=== PATIENT | male | born 1940 | race Caucasian/White ===

== ENCOUNTER 2018-09-24 10:18 | Day surgery (SDC) | payer MEDICARE ==
[2018-09-20 13:23] VITALS: BMI 35.9
[~2018-09-24 10:18] MED LIST: DEXAMETHASONE SOD PHOSPHATE 10 MG/ML 1 ML VIAL IV ONE; HYDROmorphone 0.5 MG/0.5 ML SYRINGE IVP PRN; LACTATED RINGERS 1,000 ML IV SCH; ONDANSETRON 4 MG/2 ML VIAL IVP ONE; SODIUM CHLORIDE 0.9% 1,000 ML IV SCH; ceFAZolin 1,000 MG in SODIUM CHLORIDE 0.9% IRRIGATIO 250 ML IRRIGATION ONE; ceFAZolin IN SWFI 2 GM/20 ML SYRINGE IVP ONE
[2018-09-24] MEDS ORDERED: SODIUM CHLORIDE 0.9% 1,000 ML IV ONE (10:40)
[2018-09-24] MEDS ORDERED: SODIUM CHLORIDE 0.9% 500 ML 500 ML IV ONE (10:40)
[2018-09-24 11:14] LABS: Basophils # (A) 0.1 k/uL (0-0.2); Basophils % (A) 1 %; Eosinophils # (A) 0.2 k/uL (0-0.7); Eosinophils % (A) 3 %; HCT 38.8 % (39.0-53.0); HGB 12.6 gm/dL (13.0-17.5); Lymphocytes # (A) 1.6 k/uL (1.0-4.8); Lymphocytes % (A) 22 %; MCH 30.7 pg (25.0-35.0); MCHC 32.4 g/dL (31.0-37.0); MCV 94.8 fL (80.0-100.0); Mean Platelet Volume 6.4; Monocytes # (A) 0.5 k/uL (0-1.0); Monocytes % (A) 7 %; Neutrophils # (A) 4.9 k/uL (1.3-7.7); Neutrophils % (A) 66 %; Platelet Count 167 k/uL (150-450); RBC 4.09 m/uL (4.30-5.90); RDW 13.4 % (11.5-15.5); WBC 7.5 k/uL (3.8-10.6)
[2018-09-24 11:20] LABS: Potassium 4.5 mmol/L (3.5-5.1)
[2018-09-24] MEDS ORDERED: LIDOCAINE 1% INJ 10MG/ML (20 ML MDV) ONE (11:57)
[2018-09-24] MEDS ORDERED: GLYCOPYRROLATE 0.2 MG/ML 2 ML VIAL ONE (12:45)
[2018-09-24] MEDS ORDERED: KETAMINE 10 MG/ML 20 ML VIAL ONE (12:45)
[2018-09-24] MEDS ORDERED: MIDAZOLAM 2 MG/2 ML VIAL ONE (12:45)
[2018-09-24] MEDS ORDERED: HYDROmorphone (PF) 1 MG/ML ONE (12:45)
[2018-09-24] MEDS ORDERED: PROPOFOL 10 MG/ML 20 ML VIAL IV ONE (12:45)
[2018-09-24] MEDS ORDERED: diphenhydrAMINE 50 MG/ML 1 ML VIAL ONE (12:45)
[2018-09-24] MEDS ORDERED: PHENYLEPHRINE-0.9% NACL SYG 1 MG/10 ML SYRINGE ONE (12:45)
[2018-09-24] MEDS ORDERED: HYDROcodone/APAP 5-325MG 1 EACH TAB PO PRN (13:17)
[2018-09-24] MEDS ORDERED: ACETAMINOPHEN TAB 325 MG TAB PO PRN (13:17)
[2018-09-24] MEDS ORDERED: ACETAMINOPHEN IV (For NPO) 1,000 MG in EMPTY BAG 1 BAG IVPB ONE (13:17)
[2018-09-24] MEDS ORDERED: IOPAMIDOL-250 50ML BTL IV ONE (13:20)
[2018-09-24] MEDS ORDERED: LIDOCAINE 1% INJ 10MG/ML (20 ML MDV) SQ ONE ×3 (13:38→13:48)
[2018-09-24] MEDS ORDERED: PRAVASTATIN SODIUM 20 MG TAB PO SCH (14:00)
[2018-09-24] MEDS ORDERED: FUROSEMIDE 40 MG TAB PO STA (15:40)
[2018-09-24] MEDS ORDERED: SPIRONOLACTONE 25 MG TAB PO STA (15:55)
[2018-09-24 16:45] VITALS: RESP 18
--- NOTE | 2018-09-24 18:07 | PCN ---
PROCEDURE NOTE This is an 78-year-old male patient with increasing shortness of breath, history of pulmonary hypertension, tachy-tracie syndrome with underlying atrial fibrillation with intermittent episodes of bradycardia and gradually progressive slowing of the heart rates even during the daytime. TSH normal. No AV vince-blocking drugs on board. Potassium normal. He is brought in for right heart catheterization. The right heart catheterization was performed via the axillary vein access. After making the pacemaker site incision, the venous sheath was placed in the left subclavian vein, and via this a [place]-Maggie catheter was placed in the right heart. Pulmonary capillary wedge pressure 43/5 mmHg. PA pressures 44/4/27 mmHg. RV pressure 55/23 mmHg. RA pressure 19/4/13 mmHg. DIAGNOSES: 1. Moderate pulmonary hypertension. 2. Elevated pulmonary capillary wedge pressures. PLAN: 1. Increase Lasix to 60 mg p.o. daily. 2. Increase Aldactone to 50 mg p.o. daily. 3. Continue all other medications. MMODL / IJN: [id number] /
--- NOTE | 2018-09-24 18:22 | PCN ---
PROCEDURE NOTE PERMANENT PACEMAKER IMPLANTATION: This is a permanent pacemaker implantation procedure for atrial fibrillation with tachybrady syndrome and intermittent episodes of significant bradycardia, even during the daytime. Patient has a conduction system disease with underlying left bundle branch block pattern with a QRS width of about 170 milliseconds. The patient was brought to the EP lab in a fasting state. Written informed consent was obtained prior to the procedure. The left shoulder area was prepped and draped as per protocol. Lidocaine 1% was used for local anesthesia. A 4 cm incision was made parallel to the deltopectoral groove, about 1.5 cm medial to it. The incision was carried down to the level of the pectoralis muscle. A subfascial pocket was made. Hemostasis was assured. Two venous accesses were obtained, one for RV lead and the other for biventricular pacing with physiologic septal pacing. The venous sheaths were placed after right heart catheterization and documentation of elevated pulmonary capillary wedge pressures and moderate pulmonary hypertension. The pacemaker leads were placed. The RV lead was placed in the right ventricle. This was a passive Medtronic lead, model #4074, 58 cm in length, and serial #[id number]. This was positioned in the RV apex. R-waves were 12.9 mV, pacing impedance of 814 ohms, pacing threshold 0.3 V at 0.5 milliseconds. Ten-volt test was negative. The Medtronic model #3830 lead, 69 cm in length and serial #[id number] was positioned for biventricular pacing with physiologic septal pacing. This lead was screwed into the His bundle area. Non-selective capture was noted with pacing. Loss of non- selective capture at 2.8 V at 1 millisecond. Thereafter selective His bundle capture was noted down to 0.4 V at 1 millisecond. Both leads were secured to the underlying pectoralis fascia using 2 non-absorbable sutures. Pocket was irrigated with antibiotic solution. Leads were connected to the generator. Hemostasis was achieved with Aquamantys system. The device was connected. The atrial port was plugged. This was a Medtronic Marimar EXAMINATION PROCTOR-P MRI device, model #W1TR02, serial #[id number]. Leads and the generator were then placed in the subfascial pocket. The wound was closed in 3 layers and dressed per protocol. RESULTS: Successful biventricular pacemaker implantation with physiologic septal pacing for management of tachy-tracie syndrome. SUGGEST: Increase Lasix to 60 mg p.o. daily and increase Aldactone to 50 mg p.o. daily. Continue all other medications as before and maximize antihypertensive therapy. The patient tolerated the procedure well without any acute complications. MMODL / IJN: [id number] /
--- NOTE | 2018-09-24 18:28 | LTR ---
September 24, 2018 To: Dr. Doyle Butler Re: Darrel Oates (36) Dear Dr. Butler, I had the pleasure of seeing Mr. Darrel Oates in electrophysiology consultation. Silver underwent biventricular pacemaker implantation with His bundle lead/physiologic septal pacing successfully. I also performed a right heart catheterization at the same time. He has moderate pulmonary hypertension with PA pressures between 45 and 50 mmHg. His pulmonary capillary wedge pressure is also elevated in the 40s, and therefore I am increasing the dose of Lasix as well as Aldactone. All his other medications remain the same, including Eliquis. Thank you for entrusting me with the care of your patient. Warm regards. Sincerely, Phuc Xiong M.D. KAVEH / JOHNATHAN: [id number] /
[2018-09-24] MEDS: amLODIPine 5 MG TAB PO SCH (21:34)
[2018-09-24] MEDS: ceFAZolin IN SWFI 2 GM/20 ML SYRINGE IVP SCH (21:34)
[2018-09-24] MEDS: APIXABAN 5 MG TAB PO SCH (21:34)
[2018-09-24] MEDS: LISINOPRIL 20 MG TAB PO SCH (21:34)
[2018-09-25] MEDS: ceFAZolin IN SWFI 2 GM/20 ML SYRINGE IVP SCH ×3 (02:59→14:08)
[2018-09-25] MEDS ORDERED: LEVOTHYROXINE 75 MCG TAB PO SCH (06:30)
--- NOTE | 2018-09-25 08:10 | XR ---
EXAMINATION TYPE: XR chest 2V DATE OF EXAM: 09/25/2018 COMPARISON: NONE HISTORY: Arrhythmia status post pacemaker placement. TECHNIQUE: Frontal and lateral views of the chest are obtained. FINDINGS: Exam noted suboptimal secondary to patient's large body habitus. Cardiomegaly is present. There is dual lead pacemaker with leads felt to be in the right atrium and right ventricle. Some welt edge rounder lisa parenchymal change is present without suspicious focal airspace opacity, pleural effusion, or pne umothorax identified. High riding left humeral head suggests chronic rotator cuff tear. IMPRESSION: Suboptimal study, lead placement likely satisfactory. No evidence of complication relate d to pacemaker placement.
--- NOTE | 2018-09-25 08:35 | P.DS ---
Providers Attending physician: Phuc Xiong Primary care physician: [facility] Course: Patient is resting comfortably in bed but it does not appear to be short of breath. Yesterday he diuresed quite a bit after oral Lasix Basic site is healing well there is minimal to no hematoma. Blood pressure 155/81 mmHg, 140/79 mmHg Heart rates in the 70s and 80s Afebrile Normal respirations Sounds are reduced bilaterally but there are no crackles no rhonchi Heart sounds irregular but normal Impression Elevated right-sided pressures Increased BMI Diastolic heart failure with elevated pulmonary capillary wedge pressures Hypertension with left ventricular hypertrophy him a hypertensive heart disease Left ventricular ejection fraction of about 50% Permanent Atrial fibrillation with tachybradycardia syndrome with intermittent bradycardia during the daytime despite a normal TSH and no AV node blocking drugs Status post biventricular pacemaker with His bundle pacing yesterday Suggest Increase Lasix to 60 mg by mouth daily Increase Aldactone to 50 g by mouth daily Start carvedilol 3.125 mg twice daily Continue other medications continue anticoagulation Discharge home after IV antibiotics device interrogation chest x-ray Follow-up in the device clinic in 5 days and follow with Dr. Landon in 2 months Plan - Discharge Summary Discharge Rx Participant: No New Discharge Prescriptions: New Furosemide [Lasix] 60 mg PO DAILY #90 tab RX: Spironolactone 50 mg PO DAILY #90 tablet RX: Carvedilol [Coreg] 3.125 mg PO BID #180 tablet Discontinued Spironolactone [Aldactone] 25 mg PO DAILY Furosemide [Lasix] 40 mg PO DAILY No Action HYDROcodone/APAP 7.5-325MG [[place] 7.5-325] 0.5 - 1 tab PO Q12HR PRN PRN Reason: Pain Pravastatin Sodium [Pravachol] 10 mg PO Q48H Naproxen Sodium [Aleve] 440 mg PO BID Tamsulosin [Flomax] 0.4 mg PO DAILY Cholecalciferol [Vitamin D3] 2,000 unit PO DAILY rOPINIRole HCL [Requip] 3 mg PO HS RX: Finasteride [Proscar] 5 mg PO DAILY Fluticasone Propionate [Flonase Allergy Relief] 1 spray EA NOSTRIL DAILY amLODIPine BESYLATE/BENAZEPRIL [Lotrel 5-20 MG] 1 cap PO BID Levothyroxine Sodium [Synthroid] 75 mcg PO DAILY Apixaban [Eliquis] 5 mg PO BID Multivitamin [Multivitamins Adult Gummies] 1 each PO DAILY Discharge Medication List Apixaban [Eliquis] 5 mg PO BID 09/20/18 [History] Cholecalciferol [Vitamin D3] 2,000 unit PO DAILY 09/20/18 [History] Fluticasone Propionate [Flonase Allergy Relief] 1 spray EA NOSTRIL DAILY 09/20/18 [History] HYDROcodone/APAP 7.5-325MG [[place] 7.5-325] 0.5 - 1 tab PO Q12HR PRN 09/20/18 [History] Levothyroxine Sodium [Synthroid] 75 mcg PO DAILY 09/20/18 [History] Multivitamin [Multivitamins Adult Gummies] 1 each PO DAILY 09/20/18 [History] Naproxen Sodium [Aleve] 440 mg PO BID 09/20/18 [History] Pravastatin Sodium [Pravachol] 10 mg PO Q48H 09/20/18 [History] RX: Finasteride [Proscar] 5 mg PO DAILY 09/20/18 [History] Tamsulosin [Flomax] 0.4 mg PO DAILY 09/20/18 [History] amLODIPine BESYLATE/BENAZEPRIL [Lotrel 5-20 MG] 1 cap PO BID 09/20/18 [History] rOPINIRole HCL [Requip] 3 mg PO HS 09/20/18 [History] Furosemide [Lasix] 60 mg PO DAILY #90 tab 09/24/18 [Rx] RX: Spironolactone 50 mg PO DAILY #90 tablet 09/24/18 [Rx] RX: Carvedilol [Coreg] 3.125 mg PO BID #180 tablet 09/25/18 [Rx] Follow up Appointment(s)/Referral(s): Phuc Xiong MD [STAFF PHYSICIAN] - 1 Week (Device clinic follow-up in 5 days Follow-up with Dr. Landon in 3 months) Activity/Diet/Wound Care/Special Instructions: Post EP study - Ablation instructions 1. Keep access sites dry for 2 days. 2. No heavy lifting or straining for 2 days. 3. Avoid bending the hips repeatedly for 2 days. 4. You may go up and down stairs slowly Call if the following is noted 1. Bleeding, increasing swelling or pain at the access sites. 2. Increasing chest discomfort, especially upon taking a deep breath. 3. Increasing shortness of breath, at rest or with exertion. 4. Undue cough / phlegm 5. Difficulty or pain while swallowing. 6. Pain or change in color in the extremities. 7. Fever, chills, rigors. 8. Increasing headache or neurologic symptoms. 9. Dizziness, fainting, palpitations Lasix dose increased to 60 mg by mouth daily Aldactone dose increased to 50 mg by mouth daily Carvedilol added 3.125 g twice daily Maximize antihypertensive therapy and continue higher dose of diuretics on account of elevated Pulmicort prevention pressure and right-sided pressures Discharge Disposition: HOME SELF-CARE
[2018-09-25] MEDS: APIXABAN 5 MG TAB PO SCH (08:51)
[2018-09-25] MEDS: LISINOPRIL 20 MG TAB PO SCH (08:51)
[2018-09-25] MEDS: amLODIPine 5 MG TAB PO SCH (08:51)
[2018-09-25] MEDS ORDERED: SPIRONOLACTONE 25 MG TAB PO SCH (09:00)
[2018-09-25] MEDS ORDERED: FUROSEMIDE 40 MG TAB PO SCH (09:00)
[2018-09-25] MEDS ORDERED: FINASTERIDE 5 MG TAB PO SCH (09:00)
[2018-09-25 11:53] VITALS: BP 111/66; PULSE 60; TEMP 98.2
== END 2018-09-25 15:00 | disposition home or self-care (01) ==
LOC: CATHEP 10:18 → 1SOBS 15:34 → CATHEP 09-25 15:00
PROVIDERS: ATTEND Internal Medicine Clinical Cardiac Electrophysiology
DX: I48.2 Chronic atrial fibrillation (principal); I49.5 Sick sinus syndrome; I11.0 Hypertensive heart disease with heart failure; I50.33 Acute on chronic diastolic (congestive) heart failure; I44.7 Left bundle-branch block, unspecified; E78.5 Hyperlipidemia, unspecified; I27.20 Pulmonary hypertension, unspecified; F17.210 Nicotine dependence, cigarettes, uncomplicated; F17.290 Nicotine dependence, other tobacco product, uncomplicated; G47.33 Obstructive sleep apnea (adult) (pediatric); E07.9 Disorder of thyroid, unspecified; G25.81 Restless legs syndrome; Z79.01 Long term (current) use of anticoagulants; Z79.890 Hormone replacement therapy; Z79.899 Other long term (current) drug therapy; Z86.73 Personal history of transient ischemic attack (TIA), and cerebral infarction without residual deficits
CPT/HCPCS: 93451; 33225; 33207; 80048; 85025; 71046; C1751; C1892; C1898; C2621; S0138; J2250; J1200; J0690 ×3; J2001; J1170; J2370; J2704; Q9966; 33208

== ENCOUNTER → 2020-07-19 | Outpatient (CLI) | payer MEDICARE ==
[2020-07-19 13:30] LABS: Basophils # (A) 0.1 k/uL (0-0.2); Basophils % (A) 1 %; Eosinophils # (A) 0.1 k/uL (0-0.7); Eosinophils % (A) 1 %; HCT 36.9 % (39.0-53.0); HGB 12.2 gm/dL (13.0-17.5); Lymphocytes # (A) 1.9 k/uL (1.0-4.8); Lymphocytes % (A) 19 %; MCH 30.8 pg (25.0-35.0); MCHC 33.1 g/dL (31.0-37.0); Monocytes # (A) 0.8 k/uL (0-1.0); Monocytes % (A) 8 %; Neutrophils # (A) 6.7 k/uL (1.3-7.7); Neutrophils % (A) 68 %; Platelet Count 180 k/uL (150-450); RBC 3.96 m/uL (4.30-5.90); RDW 13.5 % (11.5-15.5); WBC 9.8 k/uL (3.8-10.6)
[2020-07-19 13:41] LABS: Calcium 9.6 mg/dL (8.4-10.2); Potassium 4.5 mmol/L (3.5-5.1)
== END | disposition home or self-care (01) ==
LOC: LABPAT 11:57
PROVIDERS: ATTEND Urology
DX: Z01.818 Encounter for other preprocedural examination (principal); R31.0 Gross hematuria
CPT/HCPCS: 36415; 80048; 85025

== ENCOUNTER → 2020-07-22 | Day surgery (SDC) | payer MEDICARE ==
[2020-07-19 11:09] VITALS: BMI 38.6
[~2020-07-22] MED LIST changes: -DEXAMETHASONE SOD PHOSPHATE 10 MG/ML 1 ML VIAL IV ONE; +GLYCOPYRROLATE 0.2 MG/ML 2 ML VIAL ONE; +IOPAMIDOL-370 50ML BTL MISCELLANE ONE; +LACTATED RINGERS 1,000 ML IV ONE; +LIDOCAINE 1% (10MG/ML) FOR IV START INTRADERMA ONE; +LIDOCAINE 1% INJ 10MG/ML (20 ML MDV) ONE; +NEOSTIGMINE 1 MG/ML 10 ML VIAL ONE; +PHENYLEPHRINE 10 MG/ML VIAL ONE; +PROPOFOL 10 MG/ML 20 ML VIAL IV ONE; +ROCURONIUM 10 MG/ML (10 ML VIAL) IV ONE; -SODIUM CHLORIDE 0.9% 1,000 ML IV SCH; +SUCCINYLCHOLINE CHLORIDE 100 MG/5 ML SYR IV ONE; -ceFAZolin 1,000 MG in SODIUM CHLORIDE 0.9% IRRIGATIO 250 ML IRRIGATION ONE; +ceFAZolin 3 GM in SODIUM CHLORIDE 0.9% 100 ML IVPB PRN; -ceFAZolin IN SWFI 2 GM/20 ML SYRINGE IVP ONE; +fentaNYL (PF) 50 MCG/ML 2 ML AMP IV PRN; +fentaNYL (PF) 50 MCG/ML 2 ML AMP ONE
--- NOTE | 2020-07-22 08:41 | P.GSHP ---
History of Present Illness H&P Date: 07/22/20 Chief Complaint: Gross hematuria The patient is an 80-year-old white male with no prior history of UTIs or urolithiasis. He recently presented with intermittent gross painless hematuria, which began 07/01/2020. A computed tomography scan of the abdomen and pelvis without contrast showed bilateral renal cysts but was otherwise normal. Cystoscopy revealed reflux of bloody urine from the left ureteral orifice. No bladder tumors were seen. He now comes for cystoscopy, left otorrhea pyelogram, and left ureteroscopy in an attempt to determine the source of the bleeding. - Cardiovascular Cardiovascular: Reports high blood pressure, Reports irregular heart beat - Genitourinary (Male) Genitourinary: Reports hematuria, Reports urinary frequency Past Medical History Past Medical History: Atrial Fibrillation, Hearing Disorder / Deafness, Hyperlipidemia, Hypertension, Osteoarthritis (OA), Prostate Disorder, Thyroid Disorder Additional Past Medical History / Comment(s): CHRONIC BACK PAIN, SPURS ON SPINE. NEUROPATHY LEGS, FEET. spouse states left hand does "not work possible from a stroke", uses electrc cart or walker- "can hardly walk", hx gout, constipation, degenerative disk disease, blood in urine for past two weeks, History of Any Multi-Drug Resistant Organisms: None Reported Past Surgical History: Back Surgery, Hernia Repair, Joint Replacement, Orthopedic Surgery, Pacemaker Additional Past Surgical History / Comment(s): BACK SURG X3, NECK SURG. carter knee replacement. PARTIAL THYROIDECTOMY. carter CATARACTS. carpel tunnel release bilat Past Anesthesia/Blood Transfusion Reactions: No Reported Reaction Additional Past Anesthesia/Blood Transfusion Reaction / Comment(s): never had a blood transfusion Type of Cardiac Device: Permanent Pacemaker Device Placement Date:: 09/2018 Smoking Status: Former smoker - Past Family History Mother Family Medical History: No Reported History Medications and Allergies Home Medications Medication Instructions Recorded Confirmed Type Apixaban [Eliquis] 5 mg PO BID 09/20/18 07/19/20 History Cholecalciferol [Vitamin D3] 1,000 unit PO DAILY 09/20/18 07/19/20 History Finasteride [Proscar] 5 mg PO DAILY 09/20/18 07/19/20 History Fluticasone Propionate [Flonase 1 spray EA NOSTRIL DAILY 09/20/18 07/19/20 History Allergy Relief] HYDROcodone/APAP 7.5-325MG [[place] 1 tab PO TID PRN 09/20/18 07/19/20 History 7.5-325] Levothyroxine Sodium [Synthroid] 75 mcg PO DAILY 09/20/18 07/19/20 History Multivitamin [Multivitamins Adult 1 each PO DAILY 09/20/18 07/19/20 History Gummies] Pravastatin Sodium [Pravachol] 10 mg PO Q48H 09/20/18 07/19/20 History Tamsulosin [Flomax] 0.4 mg PO HS 09/20/18 07/19/20 History rOPINIRole HCL [Requip] 3 mg PO HS 09/20/18 07/19/20 History Furosemide [Lasix] 60 mg PO DAILY #90 tab 09/24/18 07/19/20 Rx Spironolactone 50 mg PO DAILY #90 tablet 09/24/18 07/19/20 Rx Allopurinol [Zyloprim] 100 mg PO DAILY 07/19/20 07/19/20 History Latanoprost/Pf [Latanoprost 0.005% 1 drop BOTH EYES HS 07/19/20 07/19/20 History Eye Drop] Metoprolol Succinate [Toprol XL] 75 mg PO DAILY 07/19/20 07/19/20 History fentaNYL 25MCG/HR PATCH [Duragesic 1 patch TRANSDERM Q72H 07/19/20 07/19/20 History 25MCG/HR] polyethylene glycoL 3350 [Miralax] 17 gm PO DAILY 07/19/20 07/19/20 History Allergies Allergy/AdvReac Type Severity Reaction Status Date / Time No Known Allergies Allergy Verified 07/19/20 10:26 Surgical - Exam - General well developed, well nourished, no distress - Respiratory normal respiratory effort, clear to auscultation - Cardiovascular Rhythm: regular Abnormal Heart Sounds: no systolic murmur, no diastolic murmur, no rub, no S3 Gallop, no S4 Gallop, no click, no other - Abdomen Abdomen: soft, non tender, no guarding, no rigid, no rebound - Genitourinary normal penis with no external lesions, testicles non-tender - Rectum Rectum: normal sphincter tone, no masses, other (Prostate mildly enlarged but smooth) - Psychiatric oriented to time, oriented to person, oriented to place, speech is normal, memory intact Results - Imaging CT scan - abdomen: report reviewed, image reviewed Assessment and Plan (1) Gross hematuria Status: Acute Code(s): R31.0 - GROSS HEMATURIA SNOMED Code(s): 640970570 Plan: Cystoscopy, left retrograde pyelogram, left ureteroscopy with possible biopsy. The rationale for the procedure has been reviewed in detail with the patient and his . They are aware of potential risks, which include anesthesia, bleeding, infection, and ureteral injury.
[2020-07-22 13:49] VITALS: TEMP 96.8
[2020-07-22 13:55] VITALS: RESP 16
[2020-07-22 15:39] VITALS: BP 119/82; PULSE 65
--- NOTE | 2020-07-22 16:17 | FL ---
EXAMINATION TYPE: FL urography retrograde DATE OF EXAM: 07/22/2020 FLUOROSCOPY Fluoroscopy time of 3 minutes 34 seconds was used during cystoscopy and urologic intervention with Dr Corrie Masters. 7 image/s document/s the procedure.
--- NOTE | 2020-07-27 13:30 | P.OP ---
Date of Procedure: 07/22/20 Preoperative Diagnosis: Gross hematuria Postoperative Diagnosis: Same Procedure(s) Performed: Cystoscopy, left retrograde pyelogram, left ureteroscopy with biopsies, left ureteral stent insertion Anesthesia: JULIANAA Surgeon: Reddy Masters Estimated Blood Loss (ml): 20 IV fluids (ml): 900 Pathology: other (Biopsies from left distal ureter) Condition: stable Disposition: PACU Indications for Procedure: The patient is an 80-year-old white male with no prior history of UTIs or urolithiasis. He recently presented with intermittent gross painless hematuria, which began 07/01/2020. A computed tomography scan of the abdomen and pelvis without contrast showed bilateral renal cysts but was otherwise normal. Cystoscopy revealed reflux of bloody urine from the left ureteral orifice. No bladder tumors were seen. He now comes for cystoscopy, left otorrhea pyelogram, and left ureteroscopy in an attempt to determine the source of the bleeding. Operative Findings: Narrowing and ectasia of the left distal ureter. Description of Procedure: The patient was taken to the operating room and placed in the dorsolithotomy position, with legs supported in Bret stirrups. The external genitalia was pre pped and draped sterilely. The 30 lens was used to introduce the 22-Honduran Stortz cystoscopic sheath through the urethra and into the bladder under direct vision. The prostatic urethra showed evidence of lateral lobe enlargement with a high median bar, making passage of the cystoscope into the bladder difficult. No urothelial changes were seen within the prostatic urethra. The bladder was examined in its entirety. Both ureteral orifices were normal anatomic location and configuration. The entire bladder was examined. No tumors or foreign bodies were seen. Using an acorn-tip catheter, a left retrograde pyelogram was performed in the standard fashion. The distal ureter appeared narrowed and somewhat ectatic. The ureter proximal to this appeared normal. A 0.035 inch Glidewire was passed through the cystoscope. The left ureteral orifice was cannulated, and with some difficulty the Glidewire was advanced up to the left renal pelvis. An 18- [place], 4 cm balloon dilating catheter was used to dilate the intramural portion of the ureter. The flexible ureteroscope was then passed over the wire and into the ureter. The Glidewire was removed, and the ureter was inspected. The distal ureteral mucosa appeared somewhat irregular, there are no papillary tumors were seen. The ureteroscope was slowly advanced under direct vision, up to the left renal pelvis. The proximal two thirds of the ureter appeared normal, as did the intrarenal collecting system. The ureteroscope was withdrawn into the distal ureter. Piranha forceps were used to obtain several mucosal biopsies. The Glidewire was then passed through the ureteroscope and up to the left renal pelvis. The ureteroscope was removed, and the Glidewire was backloaded into the cystoscope, which was passed into the bladder. A 28 cm, 4.8-Honduran double-J ureteral stent was placed over the wire. Proper stent positioning was verified fluoroscopically and endoscopically. The cystoscope was removed, and a Flores catheter was placed. The return was essentially clear. The patient tolerated the procedure well and was taken to the recovery room in stable condition.
== END | disposition home or self-care (01) ==
LOC: OR 09:13
PROVIDERS: ATTEND Urology
DX: N13.5 Crossing vessel and stricture of ureter without hydronephrosis (principal); N28.1 Cyst of kidney, acquired; I48.91 Unspecified atrial fibrillation; H91.90 Unspecified hearing loss, unspecified ear; E78.5 Hyperlipidemia, unspecified; I10 Essential (primary) hypertension; M19.90 Unspecified osteoarthritis, unspecified site; N42.9 Disorder of prostate, unspecified; G89.29 Other chronic pain; M54.9 Dorsalgia, unspecified; M46.00 Spinal enthesopathy, site unspecified; G62.9 Polyneuropathy, unspecified; R29.898 Other symptoms and signs involving the musculoskeletal system; R26.9 Unspecified abnormalities of gait and mobility; M10.9 Gout, unspecified; M51.9 Unspecified thoracic, thoracolumbar and lumbosacral intervertebral disc disorder; E89.0 Postprocedural hypothyroidism; Z87.440 Personal history of urinary (tract) infections; Z87.442 Personal history of urinary calculi; Z87.19 Personal history of other diseases of the digestive system; Z98.890 Other specified postprocedural states; Z96.653 Presence of artificial knee joint, bilateral; Z95.0 Presence of cardiac pacemaker; Z98.41 Cataract extraction status, right eye; Z98.42 Cataract extraction status, left eye; Z86.69 Personal history of other diseases of the nervous system and sense organs; Z87.891 Personal history of nicotine dependence; Z79.01 Long term (current) use of anticoagulants; Z79.899 Other long term (current) drug therapy; Z79.891 Long term (current) use of opiate analgesic; Z79.890 Hormone replacement therapy; Z86.73 Personal history of transient ischemic attack (TIA), and cerebral infarction without residual deficits
CPT/HCPCS: 88305; 74420; 52354; 52332; C2625; C1769 ×2; C1758; J2370; J2710; J0690; J2405; J2001; J3010; J0330; J2704; Q9967

== ENCOUNTER 2020-09-18 14:42 | Inpatient (IN) | payer MEDICARE ==
--- NOTE | 2020-09-18 15:12 | ED ---
General Adult HPI - General Chief complaint: Psychiatric Symptoms Stated complaint: Mental health Time Seen by Provider: 09/18/20 14:51 Source: patient, EMS, RN notes reviewed, old records reviewed Mode of arrival: EMS Limitations: no limitations - History of Present Illness Initial comments: 80-year-old male presenting from half-way after suicide attempt. Patient stating that he was attempting suicide by placing the plastic bag over his had. He states that he is unable to go home which is what he hopes for and is unable to have visitors he has not seen his family in several months. He is depressed and admits to suicide attempt. - Related Data Home Medications Medication Instructions Recorded Confirmed Apixaban [Eliquis] 5 mg PO BID@0600,1400 09/20/18 09/18/20 HYDROcodone/APAP 7.5-325MG [[place] 1 tab PO TID PRN 09/20/18 09/18/20 7.5-325] Levothyroxine Sodium [Synthroid] 75 mcg PO DAILY@0500 09/20/18 09/18/20 Multivitamin [Multivitamins Adult 1 each PO DAILY@0600 09/20/18 09/18/20 Gummies] Pravastatin Sodium [Pravachol] 10 mg PO DAILY@0600 09/20/18 09/18/20 Tamsulosin [Flomax] 0.4 mg PO DAILY@0600 09/20/18 09/18/20 Allopurinol [Zyloprim] 100 mg PO DAILY@0600 07/19/20 09/18/20 Latanoprost/Pf [Latanoprost 0.005% 1 drop BOTH EYES HS@1400 07/19/20 09/18/20 Eye Drop] Melatonin 3 mg PO HS@199909/18/20 09/18/20 Sennosides-Docusate Sodium 1 tab PO DAILY@0600 09/18/20 09/18/20 [Senokot-S] rOPINIRole HCL [Requip] 1 mg PO TID@0500,1300,2100 09/18/20 09/18/20 Allergies Allergy/AdvReac Type Severity Reaction Status Date / Time No Known Allergies Allergy Verified 09/18/20 17:10 Review of Systems ROS Statement: Those systems with pertinent positive or pertinent negative responses have been documented in the HPI. ROS Other: All systems not noted in ROS Statement are negative. Past Medical History Past Medical History: Atrial Fibrillation, Hearing Disorder / Deafness, Hyperlipidemia, Hypertension, Osteoarthritis (OA), Prostate Disorder, Thyroid Disorder Additional Past Medical History / Comment(s): CHRONIC BACK PAIN, SPURS ON SPINE. NEUROPATHY LEGS, FEET. spouse states left hand does "not work possible from a stroke", uses electrc cart or walker- "can hardly walk", hx gout, consti pation, degenerative disk disease, blood in urine for past two weeks, History of Any Multi-Drug Resistant Organisms: None Reported Past Surgical History: Back Surgery, Hernia Repair, Joint Replacement, Orthopedic Surgery, Pacemaker Additional Past Surgical History / Comment(s): BACK SURG X3, NECK SURG. carter knee replacement. PARTIAL THYROIDECTOMY. carter CATARACTS. carpel tunnel release bilat Past Anesthesia/Blood Transfusion Reactions: No Reported Reaction Additional Past Anesthesia/Blood Transfusion Reaction / Comment(s): never had a blood transfusion Type of Cardiac Device: Permanent Pacemaker Device Placement Date:: 09/2018 Past Psychological History: No Psychological Hx Reported Smoking Status: Former smoker - Past Family History Mother Family Medical History: No Reported History General Exam Limitations: no limitations General appearance: alert, in no apparent distress Head exam: Present: atraumatic, normocephalic Eye exam: Present: normal appearance, PERRL ENT exam: Present: normal exam Neck exam: Present: normal inspection. Absent: tenderness, meningismus Cardiovascular Exam: Present: regular rate, normal rhythm GI/Abdominal exam: Present: soft. Absent: distended Extremities exam: Present: normal inspection, normal capillary refill Neurological exam: Present: alert Psychiatric exam: Present: depressed, suicidal ideation Skin exam: Present: warm, dry, intact. Absent: cyanosis, diaphoretic Course Vital Signs 09/18/20 14:43 Temperature 98.0 F Pulse Rate 90 Respiratory 18 Rate Blood Pressure 110/68 O2 Sat by Pulse 97 Oximetry - Reevaluation(s) Reevaluation #1: 09/18/20 15:12 Patient medically cleared for EPS evaluation Reevaluation #2: 09/18/20 19:48 Patient had been evaluated by EPS and felt to not be safe for discharge. Plan was either for medical admission for UTI and psychiatric evaluation versus geriatric psych. Medical Decision Making - Medical Decision Making 80-year-old male presenting with suicide attempt. Patient is alert and oriented, able to give a detailed history. He states that he is lonely and has not been able to visit with his for several months. He's frustrated by his medical conditions which prevented him from being at home. Patient is afebrile with stable vital signs. Workup is initiated, patient has normal CBC, normal CMP, he does have a urinary tract infection which may be contributing to some delirium. He started on antibiotics. I did discuss case with Dr. Butler who will admit. Patient will have consultation with psychiatry for evaluation. - Lab Data Result diagrams: 09/18/20 18:37 09/18/20 18:37 Lab Results 09/18/20 09/18/20 09/18/20 Range/Units 17:59 18:06 18:37 WBC 8.9 (3.8-10.6) k/uL RBC 5.06 (4.30-5.90) m/uL Hgb 14.3 (13.0-17.5) gm/dL Hct 44.5 (39.0-53.0) % MCV 88.0 (80.0-100.0) fL MCH 28.3 (25.0-35.0) pg MCHC 32.2 (31.0-37.0) g/dL RDW 15.0 (11.5-15.5) % Plt Count 320 (150-450) k/uL MPV 7.5 Neutrophils % 72 % Lymphocytes % 21 % Monocytes % 6 % Eosinophils % 1 % Basophils % 1 % Neutrophils # 6.4 (1.3-7.7) k/uL Lymphocytes # 1.9 (1.0-4.8) k/uL Monocytes # 0.5 (0-1.0) k/uL Eosinophils # 0.1 (0-0.7) k/uL Basophils # 0.1 (0-0.2) k/uL Sodium (137-145) mmol/L Potassium (3.5-5.1) mmol/L Chloride (98-107) mmol/L Carbon Dioxide (22-30) mmol/L Anion Gap mmol/L BUN (9-20) mg/dL Creatinine (0.66-1.25) mg/dL Est GFR (CKD-EPI)AfAm (>60 ml/min/1.73 sqM) Est GFR (CKD-EPI)NonAf (>60 ml/min/1.73 sqM) Glucose (74-99) mg/dL Calcium (8.4-10.2) mg/dL Total Bilirubin (0.2-1.3) mg/dL AST (17-59) U/L ALT (4-49) U/L Alkaline Phosphatase (38-126) U/L Total Protein (6.3-8.2) g/dL Albumin (3.5-5.0) g/dL Urine Color Yellow Urine Appearance Turbid (Clear) Urine pH 7.0 (5.0-8.0) Ur Specific [place] 1.019 (1.001-1.035) Urine Protein 1+ H (Negative) Urine Glucose (UA) Negative (Negative) Urine Ketones Trace H (Negative) Urine Blood Moderate H (Negative) Urine Nitrite Negative (Negative) Urine Bilirubin Negative (Negative) Urine Urobilinogen <2.0 (<2.0) mg/dL Ur Leukocyte Esterase Large H (Negative) Urine RBC 18 H (0-5) /hpf Urine WBC >182 H (0-5) /hpf Urine WBC Clumps Many H (None) /hpf Urine Bacteria Few H (None) /hpf Urine Mucus Many H (None) /hpf Coronavirus (PCR) Not Detected (Not Detectd) 09/18/20 Range/Units 18:37 WBC (3.8-10.6) k/uL RBC (4.30-5.90) m/uL Hgb (13.0-17.5) gm/dL Hct (39.0-53.0) % MCV (80.0-100.0) fL MCH (25.0-35.0) pg MCHC (31.0-37.0) g/dL RDW (11.5-15.5) % Plt Count (150-450) k/uL MPV Neutrophils % % Lymphocytes % % Monocytes % % Eosinophils % % Basophils % % Neutrophils # (1.3-7.7) k/uL Lymphocytes # (1.0-4.8) k/uL Monocytes # (0-1.0) k/uL Eosinophils # (0-0.7) k/uL Basophils # (0-0.2) k/uL Sodium 136 L (137-145) mmol/L Potassium 4.9 (3.5-5.1) mmol/L Chloride 102 (98-107) mmol/L Carbon Dioxide 21 L (22-30) mmol/L Anion Gap 13 mmol/L BUN 15 (9-20) mg/dL Creatinine 0.84 (0.66-1.25) mg/dL Est GFR (CKD-EPI)AfAm >90 (>60 ml/min/1.73 sqM) Est GFR (CKD-EPI)NonAf 82 (>60 ml/min/1.73 sqM) Glucose 100 H (74-99) mg/dL Calcium 9.8 (8.4-10.2) mg/dL Total Bilirubin 0.8 (0.2-1.3) mg/dL AST 42 (17-59) U/L ALT 16 (4-49) U/L Alkaline Phosphatase 82 (38-126) U/L Total Protein 7.7 (6.3-8.2) g/dL Albumin 3.9 (3.5-5.0) g/dL Urine Color Urine Appearance (Clear) Urine pH (5.0-8.0) Ur Specific [place] (1.001-1.035) Urine Protein (Negative) Urine Glucose (UA) (Negative) Urine Ketones (Negative) Urine Blood (Negative) Urine Nitrite (Negative) Urine Bilirubin (Negative) Urine Urobilinogen (<2.0) mg/dL Ur Leukocyte Esterase (Negative) Urine RBC (0-5) /hpf Urine WBC (0-5) /hpf Urine WBC Clumps (None) /hpf Urine Bacteria (None) /hpf Urine Mucus (None) /hpf Coronavirus (PCR) (Not Detectd) Disposition Clinical Impression: Depression, Attempted suicide, UTI (urinary tract infection) Disposition: ADMITTED IP TO THIS [facility] Condition: Stable Is patient prescribed a controlled substance at d/c from ED?: No Referrals: Doyle Butler MD [Primary Care Provider] - 1-2 days Decision to Admit Reason: Admit from EC Decision Date: 09/18/20 Decision Time: 19:50
[2020-09-18 18:10] LABS: Appearance,Urine Turbid (Clear); Bacteria,Urine Few /hpf; Bilirubin,Urine Negative (Negative); Blood,Urine Moderate (Negative); Color,Urine Yellow; Glucose,Urine (UA) Negative (Negative); Ketones,Urine Trace (Negative); Leukocyte Esterase,Urine Large (Negative); Mucus,Urine Many /hpf; Nitrite,Urine Negative (Negative); Protein,Urine 1+ (Negative); RBC,Urine 18 /hpf (0-5); Specific Gravity,Urine 1.019 (1.001-1.035); Urobilinogen,Urine <2.0 mg/dL (<2.0); WBC,Urine >182 /hpf (0-5)
[2020-09-18 18:43] LABS: Basophils # (A) 0.1 k/uL (0-0.2); Basophils % (A) 1 %; Eosinophils # (A) 0.1 k/uL (0-0.7); Eosinophils % (A) 1 %; HCT 44.5 % (39.0-53.0); HGB 14.3 gm/dL (13.0-17.5); Lymphocytes # (A) 1.9 k/uL (1.0-4.8); Lymphocytes % (A) 21 %; MCH 28.3 pg (25.0-35.0); MCHC 32.2 g/dL (31.0-37.0); Mean Platelet Volume 7.5; Monocytes # (A) 0.5 k/uL (0-1.0); Monocytes % (A) 6 %; Neutrophils # (A) 6.4 k/uL (1.3-7.7); Neutrophils % (A) 72 %; Platelet Count 320 k/uL (150-450); RBC 5.06 m/uL (4.30-5.90); WBC 8.9 k/uL (3.8-10.6)
[2020-09-18 18:54] LABS: ALT 16 U/L (4-49); AST 42 U/L (17-59); African American GFR (CKD) >90 (>60 ml/min/1.73 sqM); Albumin 3.9 g/dL (3.5-5.0); Alkaline Phosphatase 82 U/L (38-126); Anion Gap 13 mmol/L; Blood Urea Nitrogen 15 mg/dL (9-20); Calcium 9.8 mg/dL (8.4-10.2); Carbon Dioxide 21 mmol/L (22-30); Chloride 102 mmol/L (98-107); Glucose 100 mg/dL (74-99); Non-African American GFR(CKD) 82 (>60 ml/min/1.73 sqM); Potassium 4.9 mmol/L (3.5-5.1); Sodium 136 mmol/L (137-145); Total Bilirubin 0.8 mg/dL (0.2-1.3); Total Protein 7.7 g/dL (6.3-8.2)
[2020-09-18] MEDS ORDERED: cefTRIAXone IN SWFI 1,000 MG/10 ML SYRINGE IVP STA (19:21)
[2020-09-18] MEDS ORDERED: NALOXONE 0.4 MG/ML 1 ML VIAL IV PRN (19:47)
[2020-09-18] MEDS ORDERED: ACETAMINOPHEN TAB 325 MG TAB PO PRN (19:47)
[2020-09-18] MEDS: SODIUM CHLORIDE 0.9% 1,000 ML IV SCH (20:08)
[2020-09-19 09:44] LABS: Urine Alcohol Negative (Negative); Urine Barbiturate Negative (Negative); Urine Cocaine Negative (Negative); Urine Methadone Negative (Negative); Urine Opiates Negative (Negative); Urine Phencyclidine Negative (Negative)
[2020-09-19] MEDS ORDERED: HYDROcodone/APAP 7.5-325MG 1 EACH TAB PO PRN (10:35)
--- NOTE | 2020-09-19 10:50 | P.HPIM ---
History of Present Illness H&P Date: 09/19/20 History of present illness This is a 80-year-old patient of Dr. Butler who resides at [facility]. 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 fib with pacemaker, BPH. Patient suffered a CVA in July resulting in expressive aphasia and hemiplegia of the right dominant side. He has been in [facility] for the last 6 weeks for therapy. He has not been able to see his or have visitors due to Covid restrictions. Patient attempted suicide by placing a bag over his head yesterday. Patient states that he just wants to give up he does not want to continue living. At this time patient is remorseful for the suicidal attempt. She was a value by EPS and was determined not to be safe for discharge. He is confused with noted impairment in short-term memory. Patient was found to have a positive urine culture. One dose of Rocephin given in the emergency room. Patient was examined in the emergency room. Able to answer questions appropriately however has episodes of confusion and short-term memory impairment. was in earlier with the patient. He is extremely upset over not being able to see her. He is remorseful for suicidal attempt however he does not want to go back to the same place if he is not able to see his . Patient states that he has not been able to have any exercise or therapy performed. Able to follow commands and move extremities on command. Patient is afebrile, blood pressure 132/82, pulse rate 70, respirations 18 and nonlabored, pulse ox a 97% on room air. WC 8.9, hemoglobin 14.3, platelets 320, potassium 4.9, BUN 15, creatinine 0.84. Review Of Systems: Constitutional: No fever, no chills, no night sweats. No weight change. No weakness, fatigue or lethargy. No daytime sleepiness. EENT: No headache. No blurred vision or double vision, no loss of vision. No loss of Hearing, no ringing in the ears, no dizziness. No nasal drainage or congestion. No epistaxis. No sore throat. Lungs: No shortness of breath, cough, no sputum production. No wheezing. Cardiovascular: No chest pain, no lower extremity edema. No palpitations. No paroxysmal nocturnal dyspnea. No orthopnea. No lightheadedness or dizziness. No syncopal episodes. Abdominal: no abdominal discomfort. No nausea, vomiting. no diarrhea. No constipation. No bloody or tarry stools. no loss of appetite. Genitourinary: No dysuria, increased frequency, urgency. No urinary retention. Musculoskeletal: No myalgias. No muscle weakness, no gait dysfunction, no frequent falls. No back pain. No neck pain. Integumentary: No wounds, no lesions. No rash or pruritus. No unusual bruising. No change in hair or nails. Neurologic: no aphasia. No facial droop. No change in mentation. No head injury. No headache. No paralysis. No paresthesia. Psychiatric: reports suicidal ideation with attempt- denies suicidal ideations at this time, Reports depression. No anxiety. No mood swings. Endocrine: No abnormal blood sugars. No weight change. No excessive sweating or thirst. Social history: Former smoker quit in 1972. Denies EtOH, denies marijuana or illicit drug use. Family history: , unable to attain due to confusion Physical examination General Appearance: Alert, cooperative, tearful, short-term memory deficit, episodes of confusion during exam, no acute distress, This is an 80-year-old male who appears stated age. Neck HEENT: Supple, no lymphadenopathy, no thyroid enlargement, no carotid bruits. Lungs: Clear to auscultation without crackles or wheezes no rhonchi, no deformity. Chest Wall: Chest wall normal expansion with deep inspiration no tenderness and no deformity was found on exam, no costochondral pain or discomfort. Heart: Regular rate and rhythm, S1, S2 normal, no murmur, rub or gallop. Back: Symmetric, no curvature, ROM normal, no CVA tenderness. Abdomen: Soft, non-tender, no rebound or rigidity, no hepatosplenomegaly. Extremities: weakness noted to right upper and lower extremities Extremities normal, atraumatic, no cyanosis or edema. Pulses: 2+ and symmetric. Skin: Skin color, texture, tugor normal, no rashes or lesions. Neurologic: Confused at times during interview, Alert oriented x2 cranial nerves II through XII intact, Assessment and plan 1. Suicidal ideation with attempt. Consult psychiatry. Possible admission to geriatric psychiatry once UTI is managed. 2. Urinary tract infection. Awaiting urinary culture, continue Rocephin 1 g daily. 3. Depression. Consult psychiatry 4. History of CVA with expressive aphasia and hemiplegia right dominant side. Consult OT/PT 5. Diastolic congestive heart failure 6. Hypothyroidism. Levothyroxine 75 g by mouth daily 7. atrial fibrillation with pacemaker. eliquis 5 mg by mouth twice a day 8. BPH. tamsulosin 0.4 mg by mouth 9. Hyperlipidemia. Pravastatin 10 mg by mouth 10. Chronic pain syndrome. Hydrocodone 1 tablet 3 times a day as needed 11. Parkinson. Requip 1 mg by mouth 3 times a day 12. GI prophylaxis. Protonix 40 mg 13. DVT prophylaxis. eliquis CODE: Full code [facility] Discharge plan: Possible admission to geriatric psychiatry Impression and plan of care have been directed as dictated by the signing physician. Carmela Brown nurse practitioner acting as scribe for signing allie wood. Past Medical History Past Medical History: Atrial Fibrillation, Hearing Disorder / Deafness, Hyperlipidemia, Hypertension, Osteoarthritis (OA), Prostate Disorder, Thyroid Disorder Additional Past Medical History / Comment(s): CHRONIC BACK PAIN, SPURS ON SPINE. NEUROPATHY LEGS, FEET. spouse states left hand does "not work possible from a stroke", uses electrc cart or walker- "can hardly walk", hx gout, constipation, degenerative disk disease, blood in urine for past two weeks, History of Any Multi-Drug Resistant Organisms: None Reported Past Surgical History: Back Surgery, Hernia Repair, Joint Replacement, Orthopedic Surgery, Pacemaker Additional Past Surgical History / Comment(s): BACK SURG X3, NECK SURG. carter knee replacement. PARTIAL THYROIDECTOMY. carter CATARACTS. carpel tunnel release bilat Past Anesthesia/Blood Transfusion Reactions: No Reported Reaction Additional Past Anesthesia/Blood Transfusion Reaction / Comment(s): never had a blood transfusion Type of Cardiac Device: Permanent Pacemaker Device Placement Date:: 09/2018 Past Psychological History: No Psychological Hx Reported Smoking Status: Former smoker - Past Family History Mother Family Medical History: No Reported History Medications and Allergies Home Medications Medication Instructions Recorded Confirmed Type Apixaban [Eliquis] 5 mg PO BID@0600,1400 09/20/18 09/18/20 History HYDROcodone/APAP 7.5-325MG [[place] 1 tab PO TID PRN 09/20/18 09/18/20 History 7.5-325] Levothyroxine Sodium [Synthroid] 75 mcg PO DAILY@0500 09/20/18 09/18/20 History Multivitamin [Multivitamins Adult 1 each PO DAILY@0600 09/20/18 09/18/20 History Gummies] Pravastatin Sodium [Pravachol] 10 mg PO DAILY@0600 09/20/18 09/18/20 History Tamsulosin [Flomax] 0.4 mg PO DAILY@0600 09/20/18 09/18/20 History Allopurinol [Zyloprim] 100 mg PO DAILY@0600 07/19/20 09/18/20 History Latanoprost/Pf [Latanoprost 0.005% 1 drop BOTH EYES HS@1400 07/19/20 09/18/20 History Eye Drop] Melatonin 3 mg PO HS@2000 09/18/20 09/18/20 History Sennosides-Docusate Sodium 1 tab PO DAILY@0600 09/18/20 09/18/20 History [Senokot-S] rOPINIRole HCL [Requip] 1 mg PO TID@0500,1300,2100 09/18/20 09/18/20 History Allergies Allergy/AdvReac Type Severity Reaction Status Date / Time No Known Allergies Allergy Verified 09/18/20 17:10 Physical Exam Vitals: Vital Signs Temp Pulse Resp BP Pulse Ox 09/19/20 04:57 98.0 F 70 18 132/82 97 09/18/20 22:00 72 18 136/73 97 09/18/20 20:14 80 18 109/76 98 09/18/20 14:43 98.0 F 90 18 110/68 97 Results CBC & Chem 7: 09/18/20 18:37 09/18/20 18:37 Labs: Abnormal Lab Results - Last 24 Hours (Table) 09/18/20 09/18/20 Range/Units 17:59 18:37 Sodium 136 L (137-145) mmol/L Carbon Dioxide 21 L (22-30) mmol/L Glucose 100 H (74-99) mg/dL Urine Protein 1+ H (Negative) Urine Ketones Trace H (Negative) Urine Blood Moderate H (Negative) Ur Leukocyte Esterase Large H (Negative) Urine RBC 18 H (0-5) /hpf Urine WBC >182 H (0-5) /hpf Urine WBC Clumps Many H (None) /hpf Urine Bacteria Few H (None) /hpf Urine Mucus Many H (None) /hpf
[2020-09-19] MEDS: SODIUM CHLORIDE 0.9% 1,000 ML IV SCH ×2 (12:14→21:49)
[2020-09-19] MEDS: APIXABAN 5 MG TAB PO SCH (13:18)
[2020-09-19] MEDS: PANTOPRAZOLE 40 MG TABLET PO SCH (17:10)
[2020-09-19] MEDS: LATANOPROST 0.005% OPHTH DROPS 2.5 ML BTL BOTH EYES SCH (17:10)
[2020-09-19] MEDS: MELATONIN 3 MG TABLET PO SCH (21:07)
[2020-09-20] MEDS: LEVOTHYROXINE 75 MCG TAB PO SCH (05:46)
[2020-09-20] MEDS: allopurinoL 100 MG TAB PO SCH (05:46)
[2020-09-20] MEDS: TAMSULOSIN 0.4 MG CAP.ER.24H PO SCH (05:46)
[2020-09-20] MEDS: SENNOSIDES-DOCUSATE SODIUM 1 EACH TAB PO SCH (05:47)
[2020-09-20] MEDS: APIXABAN 5 MG TAB PO SCH ×2 (05:47→13:39)
[2020-09-20] MEDS: PRAVASTATIN SODIUM 20 MG TAB PO SCH (05:48)
[2020-09-20 09:07] LABS: Basophils # (A) 0.05 X 10*3/uL (0.00-0.10); Basophils % (A) 0.6 %; Eosinophils # (A) 0.14 X 10*3/uL (0.04-0.35); Eosinophils % (A) 1.8 %; HCT 38.6 % (39.6-50.0); HGB 12.3 g/dL (13.0-17.0); Lymphocytes # (A) 2.14 X 10*3/uL (0.90-5.00); Lymphocytes % (A) 27.2 %; MCHC 31.9 g/dL (32.0-37.0); MCV 87.9 fL (80.0-97.0); Mean Platelet Volume 9.7 fL (9.5-12.2); Monocytes # (A) 0.64 X 10*3/uL (0.20-1.00); Monocytes % (A) 8.1 %; Neutrophils # (A) 4.87 X 10*3/uL (1.80-7.70); Neutrophils % (A) 61.9 %; Platelet Count 309 X 10*3/uL (140-440); RBC 4.39 X 10*6/uL (4.40-5.60); RDW 14.6 % (11.5-14.5); WBC 7.87 X 10*3/uL (4.50-10.00)
[2020-09-20] MEDS: PANTOPRAZOLE 40 MG TABLET PO SCH ×2 (09:22→17:34)
[2020-09-20 09:30] LABS: African American GFR (CKD) 96.4 (60.0-200.0); Albumin 3.4 g/dL (3.80-4.90); Albumin/Globulin Ratio 1.31 (1.60-3.17); Globulin 2.6 g/dL (1.6-3.3); Non-African American GFR(CKD) 83.2 (60.0-200.0); Potassium 4.1 mmol/L (3.5-5.5); Total Bilirubin 0.5 mg/dL (0.3-1.2)
[2020-09-20] MEDS: SODIUM CHLORIDE 0.9% 1,000 ML IV SCH (11:38)
[2020-09-20] MEDS: LATANOPROST 0.005% OPHTH DROPS 2.5 ML BTL BOTH EYES SCH (13:39)
--- NOTE | 2020-09-20 14:04 | P.CN ---
Psychiatric Consult - . Consult date: 09/20/20 Consult:: IDENTIFYING DATA: This patient is a , retired, 80-year-old male who is currently residing at [facility] and was admitted for suicidal ideation with an attempt by placing a plastic bag over his head. HISTORY OF PRESENT ILLNESS: The patient presented to the hospital on 09/18/2020 brought in by EMS after an attempted suicide by placing a plastic bag over his head. He reports that he did this because he has been increasingly frustrated and sad regarding his situation. The patient has been staying at [facility] since this past June and due to COVID restrictions, has been unable to see his and other family members. He reports that he has been increasingly frustrated with his situation and this led him to place a plastic bag over his head and state that he wanted to kill himself. The patient is currently expressing significant remorse for his actions. He expresses that he does not want to . He states that he is a Religion and that this is against his scientologist. He is currently not reporting any suicidal or homicidal ideation, intention, and/or plan. He does report crying episodes but is otherwise not endorsing any other significant symptoms of depression. He reports no issues with appetite. He states sleep is poor but attributes this to sleeping in unfamiliar environments. He denies any significant feelings of hopelessness, helplessness, or anhedonia. The patient does not report any significant history of bipolar disorder. He reports no increased goal-directed behavior, periods of excessive energy, or grandiosity. The patient does not endorse any auditory or visual hallucinations. He denies any paranoia or delusions. The patient has a reported history of hearing difficulty, and possible neurocognitive disorder. Collateral information was provided by the patient's Leny with verbal consent given by the patient. She reports there has been no significant history of psychiatric illness prior to this episode. She expresses that the patient is in the process of being transferred from [facility] to [facility] in order to facilitate visitation. She remains very supportive of the patient. PAST PSYCHIATRIC HISTORY: The patient denies any previous history of mental illness. Patient denies being on any psychiatric medications. Patient denies any previous psychiatric hospitalizations. Patient denies any psychiatric outpatient follow-up. Patient denies any history of suicide attempts in the past. PAST MEDICAL HISTORY: Past Medical History: Atrial Fibrillation, Hearing Disorder / Deafness, Hyperlipidemia, Hypertension, Osteoarthritis (OA), Prostate Disorder, Thyroid Disorder Additional Past Medical History / Comment(s): CHRONIC BACK PAIN, SPURS ON SPINE. NEUROPATHY LEGS, FEET. spouse states left hand does "not work possible from a stroke", uses electrc cart or walker- "can hardly walk", hx gout, constipation, degenerative disk disease, blood in urine for past two weeks, History of Any Multi-Drug Resistant Organisms: None Reported Past Surgical History: Back Surgery, Hernia Repair, Joint Replacement, Orthopedic Surgery, Pacemaker Additional Past Surgical History / Comment(s): BACK SURG X3, NECK SURG. carter knee replacement. PARTIAL THYROIDECTOMY. carter CATARACTS. carpel tunnel release bilat Past Anesthesia/Blood Transfusion Reactions: No Reported Reaction Additional Past Anesthesia/Blood Transfusion Reaction / Comment(s): never had a blood transfusion Type of Cardiac Device: Permanent Pacemaker Device Placement Date:: 09/2018 ALLERGIES: NO KNOWN DRUG ALLERGIES CHEMICAL DEPENDENCY HISTORY: Former smoker. Patient denies any alcohol, marijuana, or illicit drug use. FAMILY PSYCHIATRIC/SUBSTANCE USE HISTORY: The patient does not recall any family history of psychiatric illness or substance abuse. SOCIAL HISTORY: The patient is currently staying at [facility] since past June after a recent stroke. He has been to his Leny for 62 years. He reports having 4 children and 2 grandchildren. His currently resides in [place]. 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 MENTAL STATUS EXAM: General Appearance: Patient appears to be stated age is alert, pleasant, and cooperative. Patient appears to have fair hygiene and grooming wearing hospital gown with fair eye contact. Obese body habitus. Behavior: Patient is calmly lying in bed without any agitated behavior. Patient is hard of hearing. Eye contact is appropriate. Speech: Patient's speech is fluent and nonpressured. Mood/Affect: Patient reports their mood is "I regret it", affect is congruent, remorseful, and otherwise euthymic. Suicidality/Homicidality: Patient denies having any suicidal or homicidal ideation intent or plan. Perceptions: Patient denies any visual hallucinations and denies any auditory hallucinations Though content/process: There is no evidence of any delusional thought content and thought process is linear and goal-directed. Memory and concentration: AOX3, grossly intact for the purposes of this session. Can spell "WORLD" backwards Judgment and insight: Fair IMPRESSIONS: Adjustment disorder with depressed mood Neurocognitive disorder, unspecified PLAN: -At this time patient DOES NOT meet criteria for inpatient psychiatric admission. Despite his risk factors of age, ailing healther, and gender, the patient has numerous protective factors including a very supportive family, strong Religion deja, and a supervised living situation that places the patient's risk lower. At this time, it would be more therapeutic for the patient to be treated outside of an inpatient psychiatric facility. This plan was discussed with him in great detail with the patient's who agrees. -Delirium precautions recommended with patient including - avoiding use of narcotics and [facility] sedatives, limit anticholinergic medications when possible, frequent re-orientation, minimize use of restraints, open window shades during the day and close them at night -Would recommend the following medication changes/additions: We will start trazodone 50 mg by mouth at bedtime for insomnia/depression. -Discontinue 1:1 sitter. -Recommend outpatient follow-up. -Psychiatry will sign off at this point, please contact with any questions. 09/20/20 13:50
--- NOTE | 2020-09-20 14:22 | P.PN ---
Subjective Progress Note Date: 09/20/20 History of present illness This is a 80-year-old patient of Dr. Butler who resides at [facility]. Patient's past medical history includes CVA, expressive aphasia, hemiplegia to t he right dominant side, diastolic congestive heart failure, hyperthyroidism, A. fib with pacemaker, BPH. Patient suffered a CVA in July resulting in expressive aphasia and hemiplegia of the right dominant side. He has been in [facility] for the last 6 weeks for therapy. He has not been able to see his or have visitors due to Covid restrictions. Patient attempted suicide by placing a bag over his head yesterday. Patient states that he just wants to give up he does not want to continue living. At this time patient is remorseful for the suicidal attempt. She was a value by EPS and was determined not to be safe for discharge. He is confused with noted impairment in short-term memory. Patient was found to have a positive urine culture. One dose of Rocephin given in the emergency room. Patient was examined in the emergency room. Able to answer questions appropriately however has episodes of confusion and short-term memory impairment. was in earlier with the patient. He is extremely upset over not being able to see her. He is remorseful for suicidal attempt however he does not want to go back to the same place if he is not able to see his . Patient states that he has not been able to have any exercise or therapy performed. Able to follow commands and move extremities on command. Patient is afebrile, blood pressure 132/82, pulse rate 70, respirations 18 and nonlabored, pulse ox a 97% on room air. WC 8.9, hemoglobin 14.3, platelets 320, potassium 4.9, BUN 15, creatinine 0.84. 09/20: Currently waiting for psychiatric evaluation. Plan is for geriatric psychiatric Center if psychiatry agreed. Social work has been updated of the knee. Patient is requesting be no code. Sitter is at the bedside. Patient is afebrile, heart rate 79, blood pressure 112/75, pulse ox 90% on room air. Repeat blood work reveals W BC 7.8, hemoglobin 12.3. Electrolytes and renal function, liver function tests normal. Review Of Systems: Constitutional: No fever, no chills, no night sweats. No weight change. No weakness, fatigue or lethargy. No daytime sleepiness. EENT: No headache. No blurred vision or double vision, no loss of vision. No loss of Hearing, no ringing in the ears, no dizziness. No nasal drainage or congestion. No epistaxis. No sore throat. Lungs: No shortness of breath, cough, no sputum production. No wheezing. Cardiovascular: No chest pain, no lower extremity edema. No palpitations. No paroxysmal nocturnal dyspnea. No orthopnea. No lightheadedness or dizziness. No syncopal episodes. Abdominal: no abdominal discomfort. No nausea, vomiting. no diarrhea. No constipation. No bloody or tarry stools. no loss of appetite. Genitourinary: No dysuria, increased frequency, urgency. No urinary retention. Musculoskeletal: No myalgias. No muscle weakness, no gait dysfunction, no frequent falls. No back pain. No neck pain. Integumentary: No wounds, no lesions. No rash or pruritus. No unusual bruising. No change in hair or nails. Neurologic: no aphasia. No facial droop. No change in mentation. No head injury. No headache. No paralysis. No paresthesia. Psychiatric: reports suicidal ideation with attempt- denies suicidal ideations at this time, Reports depression. No anxiety. No mood swings. Endocrine: No abnormal blood sugars. No weight change. No excessive sweating or thirst. Physical examination General Appearance: Alert, cooperative, tearful, short-term memory deficit, no acute distress, This is an 80-year-old male who appears stated age. Neck HEENT: Supple, no lymphadenopathy, no thyroid enlargement, no carotid bruits. Lungs: Clear to auscultation without crackles or wheezes no rhonchi, no deformity. Chest Wall: Chest wall normal expansion with deep inspiration no tenderness and no deformity was found on exam, no costochondral pain or discomfort. Heart: Regular rate and rhythm, S1, S2 normal, no murmur, rub or gallop. Back: Symmetric, no curvature, ROM normal, no CVA tenderness. Abdomen: Soft, non-tender, no rebound or rigidity, no hepatosplenomegaly. Extremities: weakness noted to right upper and lower extremities Extremities normal, atraumatic, no cyanosis or edema. Pulses: 2+ and symmetric. Skin: Skin color, texture, tugor normal, no rashes or lesions. Neurologic: Alert oriented x2 cranial nerves II through XII intact, Assessment and plan 1. Suicidal ideation with attempt. Consult psychiatry. Possible admission to geriatric psychiatry once UTI is managed. 2. Urinary tract infection. Awaiting urinary culture, continue Rocephin 1 g daily. 3. Recurrent Depression. Consult psychiatry 4. History of CVA with expressive aphasia and hemiplegia right dominant side. Consult OT/PT 5. Diastolic congestive heart failure 6. Hypothyroidism. Levothyroxine 75 g by mouth daily 7. atrial fibrillation with pacemaker. eliquis 5 mg by mouth twice a day 8. BPH. tamsulosin 0.4 mg by mouth 9. Hyperlipidemia. Pravastatin 10 mg by mouth 10. Chronic pain syndrome. Hydrocodone 1 tablet 3 times a day as needed 11. Parkinson. Requip 1 mg by mouth 3 times a day 12. GI prophylaxis. Protonix 40 mg 13. DVT prophylaxis. eliquis CODE: NO code Discharge plan: Possible admission to geriatric psychiatry Impression and plan of care have been directed as dictated by the signing physician. Jessica Grady nurse practitioner acting as scribe for signing physician. Objective - Vital Signs Vital signs: Vital Signs Temp 97.6 F 09/20/20 04:20 Pulse 76 09/20/20 04:20 Resp 16 09/20/20 04:20 BP 120/72 09/20/20 04:20 Pulse Ox 93 L 09/20/20 04:20 Intake & Output 09/19/20 09/20/20 09/20/20 18:59 06:59 18:59 Intake Total 75 1380 Output Total 200 Balance -125 1380 Weight 113 kg Intake: Intake, IV Titration 75 900 Amount Sodium Chloride 0.9% 1, 75 900 000 ml @ 75 mls/hr IV . [id number] [facility] Rx#:[id number] Oral 480 Output: Urine 200 Other: Voiding Method Urinal # Voids 5 - Labs CBC & Chem 7: 09/20/20 05:58 09/20/20 05:58
[2020-09-20] MEDS: MELATONIN 3 MG TABLET PO SCH (20:30)
[2020-09-20] MEDS: traZODone HCL 50 MG TAB PO SCH (20:30)
[2020-09-21] MEDS: SODIUM CHLORIDE 0.9% 1,000 ML IV SCH ×2 (00:46→13:36)
[2020-09-21] MEDS: APIXABAN 5 MG TAB PO SCH ×2 (06:00→13:28)
[2020-09-21] MEDS: LEVOTHYROXINE 75 MCG TAB PO SCH (06:00)
[2020-09-21] MEDS: allopurinoL 100 MG TAB PO SCH (06:00)
[2020-09-21] MEDS: PRAVASTATIN SODIUM 20 MG TAB PO SCH (06:00)
[2020-09-21] MEDS: SENNOSIDES-DOCUSATE SODIUM 1 EACH TAB PO SCH (06:00)
[2020-09-21] MEDS: TAMSULOSIN 0.4 MG CAP.ER.24H PO SCH (06:00)
[2020-09-21] MEDS: PANTOPRAZOLE 40 MG TABLET PO SCH ×2 (08:59→16:49)
--- NOTE | 2020-09-21 10:23 | P.DS ---
Providers Date of admission: 09/20/20 09:18 Expected date of discharge: 09/21/20 Attending physician: Doyle Butler Consults: 09/18/20 19:47 Consult Physician Routine Consulting Provider: Doyle Milton Consult Reason/Comments: Depression, suicide attempt Do you want consulting provider notified?: Yes Primary care physician: Doyle Butler [facility] Course: History of present illness This is a 80-year-old patient of Dr. Butler who resides at [facility]. 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 fib with pacemaker, BPH. Patient suffered a CVA in July resulting in expressive aphasia and hemiplegia of the right dominant side. He has been in [facility] for the last 6 weeks for therapy. He has not been able to see his or have visitors due to Covid restrictions. Patient attempted suicide by placing a bag over his head yesterday. Patient states that he just wants to give up he does not want to continue living. At this time patient is remorseful for the suicidal attempt. She was a value by EPS and was determined not to be safe for discharge. He is confused with noted impairment in short-term memory. Patient was found to have a positive urine culture. One dose of Rocephin given in the emergency room. Patient was examined in the emergency room. Able to answer questions appropriately however has episodes of confusion and short-term memory impairment. was in earlier with the patient. He is extremely upset over not being able to see her. He is remorseful for suicidal attempt however he does not want to go back to the same place if he is not able to see his . Patient states that he has not been able to have any exercise or therapy performed. Able to follow commands and move extremities on command. Patient is afebrile, blood pressure 132/82, pulse rate 70, respirations 18 and nonlabored, pulse ox a 97% on room air. WC 8.9, hemoglobin 14.3, platelets 320, potassium 4.9, BUN 15, creatinine 0.84. 09/20: Currently waiting for psychiatric evaluation. Plan is for geriatric psychiatric Center if psychiatry agreed. Social work has been updated of the knee. Patient is requesting be no code. Sitter is at the bedside. Patient is afebrile, heart rate 79, blood pressure 112/75, pulse ox 90% on room air. Repeat blood work reveals W BC 7.8, hemoglobin 12.3. Electrolytes and renal function, liver function tests normal. 09/21: Patient has been seen by psychiatry and suicidal ideation has been ruled out, sitter has been discontinued. Recommendations for trazodone 50 mg at bedtime. Patient has been afebrile, heart rate 65, blood pressure 102/68, pulse ox 95% on room air. The patient is very talkative today. Plan is for discharge to [facility] for subacute rehab. Patient will be discharged today in stable condition. Assessment and plan 1. Suicidal ideation with attempt. Cleared for discharge by psychiatry, no suicidal ideation. 2. Urinary tract infection. 3. Recurrent Depression. 4. History of CVA with expressive aphasia and hemiplegia right dominant side. 5. Diastolic heart failure 6. Hypothyroidism. 7. Chronic atrial fibrillation with pacemaker. 8. BPH. 9. Hyperlipidemia. 10. Chronic pain syndrome. 11. Parkinson. Discharge plan: Discharge to [facility] under the care of Dr. Butler Impression and plan of care have been directed as dictated by the signing physician. Jessica Grady nurse practitioner acting as scribe for signing physician. Patient Condition at Discharge: Good Plan - Discharge Summary Discharge Rx Participant: No New Discharge Prescriptions: New traZODone HCL [Desyrel] 50 mg PO HS tab Continue Pravastatin Sodium [Pravachol] 10 mg PO DAILY@0600 Tamsulosin [Flomax] 0.4 mg PO DAILY@0600 Levothyroxine Sodium [Synthroid] 75 mcg PO DAILY@0500 Apixaban [Eliquis] 5 mg PO BID@0600,1400 Multivitamin [Multivitamins Adult Gummies] 1 each PO DAILY@0600 Allopurinol [Zyloprim] 100 mg PO DAILY@0600 Latanoprost/Pf [Latanoprost 0.005% Eye Drop] 1 drop BOTH EYES HS@1400 Melatonin 3 mg PO HS@2000 rOPINIRole HCL [Requip] 1 mg PO TID@0500,1300,2100 Sennosides-Docusate Sodium [Senokot-S] 1 tab PO DAILY@0600 HYDROcodone/APAP 7.5-325MG [[place] 7.5-325] 1 tab PO TID PRN #9 tab PRN Reason: Pain Discharge Medication List Apixaban [Eliquis] 5 mg PO BID@0600,1400 09/20/18 [History] Levothyroxine Sodium [Synthroid] 75 mcg PO DAILY@0500 09/20/18 [History] Multivitamin [Multivitamins Adult Gummies] 1 each PO DAILY@0600 09/20/18 [History] Pravastatin Sodium [Pravachol] 10 mg PO DAILY@0600 09/20/18 [History] Tamsulosin [Flomax] 0.4 mg PO DAILY@0609/20/18 [History] Allopurinol [Zyloprim] 100 mg PO DAILY@0600 07/19/20 [History] Latanoprost/Pf [Latanoprost 0.005% Eye Drop] 1 drop BOTH EYES HS@1400 07/19/20 [History] Melatonin 3 mg PO HS@199909/18/20 [History] Sennosides-Docusate Sodium [Senokot-S] 1 tab PO DAILY@0600 09/18/20 [History] rOPINIRole HCL [Requip] 1 mg PO TID@0500,1300,2100 09/18/20 [History] HYDROcodone/APAP 7.5-325MG [[place] 7.5-325] 1 tab PO TID PRN #9 tab 09/21/20 [Rx] traZODone HCL [Desyrel] 50 mg PO HS tab 09/21/20 [Rx] Follow up Appointment(s)/Referral(s): Doyle Butler MD [Primary Care Provider] - 1 Week (at [facility])
[2020-09-21] MEDS: MELATONIN 3 MG TABLET PO SCH (21:00)
[2020-09-21] MEDS ORDERED: LATANOPROST 0.005% OPHTH DROPS 2.5 ML BTL BOTH EYES SCH (21:00)
[2020-09-21] MEDS: traZODone HCL 50 MG TAB PO SCH (21:00)
[2020-09-22] MEDS: LEVOTHYROXINE 75 MCG TAB PO SCH (06:04)
[2020-09-22] MEDS: SENNOSIDES-DOCUSATE SODIUM 1 EACH TAB PO SCH (06:04)
[2020-09-22] MEDS: allopurinoL 100 MG TAB PO SCH (06:04)
[2020-09-22] MEDS: TAMSULOSIN 0.4 MG CAP.ER.24H PO SCH (06:04)
[2020-09-22] MEDS: PRAVASTATIN SODIUM 20 MG TAB PO SCH (06:04)
[2020-09-22] MEDS: APIXABAN 5 MG TAB PO SCH ×2 (06:04→13:42)
[2020-09-22] MEDS: SODIUM CHLORIDE 0.9% 1,000 ML IV SCH (06:05)
[2020-09-22] MEDS: PANTOPRAZOLE 40 MG TABLET PO SCH (08:47)
--- NOTE | 2020-09-22 10:51 | P.PN ---
Subjective Progress Note Date: 09/21/20 History of present illness This is a 80-year-old patient of Dr. Butler who resides at [facility]. Patient's past medical history includes CVA, expressive aphasia, hemiplegia to t he right dominant side, diastolic congestive heart failure, hyperthyroidism, A. fib with pacemaker, BPH. Patient suffered a CVA in July resulting in expressive aphasia and hemiplegia of the right dominant side. He has been in [facility] for the last 6 weeks for therapy. He has not been able to see his or have visitors due to Covid restrictions. Patient attempted suicide by placing a bag over his head yesterday. Patient states that he just wants to give up he does not want to continue living. At this time patient is remorseful for the suicidal attempt. She was a value by EPS and was determined not to be safe for discharge. He is confused with noted impairment in short-term memory. Patient was found to have a positive urine culture. One dose of Rocephin given in the emergency room. Patient was examined in the emergency room. Able to answer questions appropriately however has episodes of confusion and short-term memory impairment. was in earlier with the patient. He is extremely upset over not being able to see her. He is remorseful for suicidal attempt however he does not want to go back to the same place if he is not able to see his . Patient states that he has not been able to have any exercise or therapy performed. Able to follow commands and move extremities on command. Patient is afebrile, blood pressure 132/82, pulse rate 70, respirations 18 and nonlabored, pulse ox a 97% on room air. WC 8.9, hemoglobin 14.3, platelets 320, potassium 4.9, BUN 15, creatinine 0.84. 09/20: Currently waiting for psychiatric evaluation. Plan is for geriatric psychiatric Center if psychiatry agreed. Social work has been updated of the knee. Patient is requesting be no code. Sitter is at the bedside. Patient is afebrile, heart rate 79, blood pressure 112/75, pulse ox 90% on room air. Repeat blood work reveals W BC 7.8, hemoglobin 12.3. Electrolytes and renal function, liver function tests normal. 09/21: Patient is scheduled for discharge to [facility]. Social work is waiting for insurance authorization for subacute rehab. No change in patient's medications. He has been afebrile, heart rate 64, blood pressure 106/63, pulse ox 97% on room air. No repeat labs today. No sitter at the bedside. Patient will be discharged to [facility] once arrangements are completed. Review Of Systems: Constitutional: No fever, no chills, no night sweats. No weight change. No weakness, fatigue or lethargy. No daytime sleepiness. EENT: No headache. No blurred vision or double vision, no loss of vision. No loss of Hearing, no ringing in the ears, no dizziness. No nasal drainage or congestion. No epistaxis. No sore throat. Lungs: No shortness of breath, cough, no sputum production. No wheezing. Cardiovascular: No chest pain, no lower extremity edema. No palpitations. No paroxysmal nocturnal dyspnea. No orthopnea. No lightheadedness or dizziness. No syncopal episodes. Abdominal: no abdominal discomfort. No nausea, vomiting. no diarrhea. No constipation. No bloody or tarry stools. no loss of appetite. Genitourinary: No dysuria, increased frequency, urgency. No urinary retention. Musculoskeletal: No myalgias. No muscle weakness, no gait dysfunction, no frequent falls. No back pain. No neck pain. Integumentary: No wounds, no lesions. No rash or pruritus. No unusual bruising. No change in hair or nails. Neurologic: no aphasia. No facial droop. No change in mentation. No head injury. No headache. No paralysis. No paresthesia. Psychiatric: reports suicidal ideation with attempt- denies suicidal ideations at this time, Reports depression. No anxiety. No mood swings. Endocrine: No abnormal blood sugars. No weight change. No excessive sweating or thirst. Physical examination General Appearance: Alert, cooperative, tearful, short-term memory deficit, no acute distress, This is an 80-year-old male who appears stated age. Neck HEENT: Supple, no lymphadenopathy, no thyroid enlargement, no carotid bruits. Lungs: Clear to auscultation without crackles or wheezes no rhonchi, no deformity. Chest Wall: Chest wall normal expansion with deep inspiration no tenderness and no deformity was found on exam, no costochondral pain or discomfort. Heart: Regular rate and rhythm, S1, S2 normal, no murmur, rub or gallop. Back: Symmetric, no curvature, ROM normal, no CVA tenderness. Abdomen: Soft, non-tender, no rebound or rigidity, no hepatosplenomegaly. Extremities: weakness noted to right upper and lower extremities Extremities normal, atraumatic, no cyanosis or edema. Pulses: 2+ and symmetric. Skin: Skin color, texture, tugor normal, no rashes or lesions. Neurologic: Alert oriented x2 cranial nerves II through XII intact, Assessment and plan 1. Suicidal ideation with attempt. Consult psychiatry for appreciated suicide ideation is been ruled out. Patient is not a threat to himself. Sitter has been discontinued. Psychiatry as recommended trazodone for sleep. 2. Urinary tract infection. Awaiting urinary culture, continue Rocephin 1 g daily. No antibiotics plan for discharge as patient will have completed course. 3. Recurrent Depression. Consult psychiatry 4. History of CVA with expressive aphasia and hemiplegia right dominant side. Consult OT/PT 5. Diastolic congestive heart failure 6. Hypothyroidism. Levothyroxine 75 g by mouth daily 7. atrial fibrillation with pacemaker. eliquis 5 mg by mouth twice a day 8. BPH. tamsulosin 0.4 mg by mouth 9. Hyperlipidemia. Pravastatin 10 mg by mouth 10. Chronic pain syndrome. Hydrocodone 1 tablet 3 times a day as needed 11. Parkinson. Requip 1 mg by mouth 3 times a day 12. GI prophylaxis. Protonix 40 mg 13. DVT prophylaxis. eliquis CODE: NO code Discharge plan: Subacute rehab Impression and plan of care have been directed as dictated by the signing physician. Jessica Grady nurse practitioner acting as scribe for signing physician. Objective - Vital Signs Vital signs: Vital Signs Temp 97.4 F L 09/21/20 05:10 Pulse 65 09/21/20 05:10 Resp 14 09/21/20 05:10 BP 102/68 09/21/20 05:10 Pulse Ox 95 09/21/20 05:10 Intake & Output 09/20/20 09/21/20 09/21/20 18:59 06:59 18:59 Intake Total 1520 600 Output Total 200 250 Balance 1320 350 Intake: Intake, IV Titration 800 600 Amount Sodium Chloride 0.9% 1, 600 600 000 ml @ 75 mls/hr IV . [id number] [facility] Rx#:[id number] cefTRIAXone 1 gm In 200 Sodium Chloride 0.9% 50 ml @ 100 mls/hr IVPB Q24H [facility] Rx#:[id number] Oral 720 Output: Urine 200 250 Other: Voiding Method Urinal Urinal # Voids 5 # Bowel Movements 1 - Labs CBC & Chem 7: 09/20/20 05:58 09/20/20 05:58 Labs: Microbiology - Last 24 Hours (Table) 09/20/20 15:50 Urine Culture - Preliminary Urine,Voided
[2020-09-22 11:57] VITALS: BP 118/80; PULSE 66; RESP 18; TEMP 98.2
== END 2020-09-22 16:06 | DRG 881 ==
LOC: EC 14:42 → 4SSUR 19:47 → 5NMEDONC 09-19 14:23 → OBSVTOIN 09-20 09:18
PROVIDERS: ADMIT Internal Medicine Geriatric Medicine; ATTEND Internal Medicine Geriatric Medicine
DX: F43.21 Adjustment disorder with depressed mood (principal); T71.1 Asphyxiation due to mechanical threat to breathing; I69.351 Hemiplegia and hemiparesis following cerebral infarction affecting right dominant side; I50.32 Chronic diastolic (congestive) heart failure; I48.20 Chronic atrial fibrillation, unspecified; F33.9 Major depressive disorder, recurrent, unspecified; N39.0 Urinary tract infection, site not specified; G62.9 Polyneuropathy, unspecified; E78.5 Hyperlipidemia, unspecified; F02.80 Dementia in other diseases classified elsewhere, unspecified severity, without behavioral disturbance, psychotic disturbance, mood disturbance, and anxiety; I11.0 Hypertensive heart disease with heart failure; G20 Parkinson's disease; Z20.822 Contact with and (suspected) exposure to COVID-19; E89.0 Postprocedural hypothyroidism; G89.4 Chronic pain syndrome; N40.0 Benign prostatic hyperplasia without lower urinary tract symptoms; H91.90 Unspecified hearing loss, unspecified ear; I69.320 Aphasia following cerebral infarction; M54.9 Dorsalgia, unspecified; M10.9 Gout, unspecified; G47.00 Insomnia, unspecified; M19.90 Unspecified osteoarthritis, unspecified site; Z79.01 Long term (current) use of anticoagulants; Z79.890 Hormone replacement therapy; Z79.899 Other long term (current) drug therapy; Z87.891 Personal history of nicotine dependence; Z95.0 Presence of cardiac pacemaker; Z96.653 Presence of artificial knee joint, bilateral; Z98.42 Cataract extraction status, left eye; Z98.41 Cataract extraction status, right eye; Z87.19 Personal history of other diseases of the digestive system; Z87.39 Personal history of other diseases of the musculoskeletal system and connective tissue; Z98.890 Other specified postprocedural states
CPT/HCPCS: 36415; 80053; 80306; 81001; 82075; 85025; 87086; 87635; 96374; 99285